=== PATIENT | female | born 1970 | race Caucasian/White ===

== ENCOUNTER 2016-08-29 14:05 | Emergency (ER) | payer SELFPAY ==
[2016-08-29] MEDS: NORMAL SALINE 10 ML SYRINGE FLUSH IVP PRN ×2 (14:20→14:46)
[2016-08-29] MEDS ORDERED: Mupirocin Ointment 2% 22 gm Tube TOPICAL ONE (14:26)
[2016-08-29] MEDS ORDERED: DEXAMETHASONE PF 10 MG/1 ML VIAL IVP ONE (14:26)
[2016-08-29 14:32] LABS: BASOPHILS # (AUTO) 0 10*3/UL; BASOPHILS % (AUTO) 0 % (0-1); EOSINOPHILS % (AUTO) 0.3 % (0-8); HEMATOCRIT 46.1 % (37.0-47.0); HEMOGLOBIN 15.6 g/dL (12.0-16.0); IMM GRAN % (AUTO) 0 % (0-5); IMM GRAN# (AUTO) 0 10*3/UL; LYMPHOCYTES # (AUTO) 0.73 10*3/uL; LYMPHOCYTES % (AUTO) 23.3 % (10-50); MEAN CORPUSCULAR HEMOGLOBIN 30.6 PG (27-31); MEAN CORPUSCULAR HGB CONC 33.8 g/dL (33-37); MONOCYTES # (AUTO) 0.21 10*3/UL (0.3-0.8); MONOCYTES % (AUTO) 6.7 % (5-15); NEUTROPHILS # (AUTO) 2.18 10*3/UL; NEUTROPHILS % (AUTO) 69.7 % (50-80); RDW COEFFICIENT OF VARIATION 14.7 % (11.5-14.5); WHITE BLOOD COUNT 3.13 10^3/uL (4.8-10.8)
--- NOTE | 2016-08-29 14:33 | PDOC ---
Skin Rash/Insect/Abscess HPI - General Chief Complaint: Integumentary Stated Complaint: RASH ALL OVER HER BODY Date Seen by Provider: 08/29/16 Time Seen by Provider: 14:27 Source: POSITIVE: Patient Exam Limitations: POSITIVE: No limitations Nurse's Notes Reviewed & Considered: Yes - History of Present Illness Initial Comments: Patient comes in today with chief complaint of rash. 3 days ago patient began to develop a papular rash at the base of her throat then spread pretty much over all of her body. It has been itching. She took Claritin and this seems to have helped the itch somewhat. She saw here yesterday, they started her on unknown dose of prednisone for 5 days. Today her rash is slightly better. She denies any fever or chills she has had sweats. Denies any nausea vomiting or diarrhea, no hematuria dysuria. Have you received a tetanus shot in the past 10 years?: No Body Location Affected: REPORTS: Other (Generalized body.) Timing: REPORTS: Gradual Duration: >24 hours Severity: Severe Quality: REPORTS: Itching Identified Causes: REPORTS: No When Exposed: REPORTS: Unknown Exposure Time Where Exposed: REPORTS: Unknown Similar Symptoms Previously: No Recent Care Received: REPORTS: Recently Seen, Treated by MD (Treated with prednisone for 5 days.) Any Prior Injuries Related to Current Complaint?: No - Patient Home Medications Home Medications: Home Medications Vitamin A 1 cap PO DAILY 08/09/13 Prednisone 50 mg PO DAILY #5 tab 08/28/16 Ibuprofen 400 mg PO Q6H PRN 08/29/16 Loratadine [Claritin] 10 mg PO DAILY 08/29/16 Ranitidine HCl [Zantac 75] 75 mg PO DAILY 08/29/16 - Patient Allergies Allergies/Adverse Reactions: Allergies Allergy/AdvReac Type Severity Reaction Status Date / Time No Known Drug Allergies Allergy NOT Verified 08/29/16 14:21 APPLICABLE Past Medical History - heen HEENT History: Denies History Cardiovascular History: Denies History Respiratory History: Other (please comment) Additional Respiratory History: SMOKERS COUGH ESPECIALLY IN MORNINGS Gastrointestinal History: GERD Additional Gastrointestinal History: DIFFICULTY SWALLOWING, FOOD STICKING Genitourinary History: Denies History Endocrine History: Denies History Musculoskeletal History: Back Pain Prosthesis or Implant: No Neurological History: Denies History Blood Disorders: Denies History Psychiatric History: Substance Abuse History of Sexually Transmitted Diseases: No Cancer History: Denies History History of MDRO: No History of Other Communicable Diseases: No Alcohol Use: None Substance Use Type: Marijuana Previous Surgical History: Yes Type / Date of Surgery: RIGHT WRIST ORIF WITH HARDWARE REMOVAL/ TUBAL Anesthesia Reactions: No Malignant Hyperthermia: No Significant Family History: Heart disease, Cancer ROS - Limitations ROS Limitations: No Limitations Constitution: REPORTS: Diaphoresis Cardiovascular: REPORTS: Denies Cardiac Symptoms Respiratory: REPORTS: Denies Resp Symptoms Neurological: REPORTS: Denies Neuro Symptoms Gastrointestinal: REPORTS: Denies GI Symptoms Endocrine: REPORTS: Denies Symptoms Musculoskeletal: REPORTS: Denies MS Symptoms Genitourinary: REPORTS: Denies Symptoms Eyes: REPORTS: Denies Symptoms ENT: REPORTS: Denies Symptoms Skin: REPORTS: Rash (Generalized erythemic rash. Looks like sandpaper.) Lympathic: REPORTS: Denies Lympathic Symptoms Immunologic: POSITIVE: Denies Symptoms Psychiatric: POSITIVE: Denies Psych Symptoms Skin Rash/Insect/Abscess Exam - General Appearance General Appearance: REPORTS: Alert, Cooperative, No Evidence of Trauma, Anxious - Skin Skin: REPORTS: Warm, Dry, Skin Rash (Small pustules are noted at the base of each hair follicle with erythema present) Skin Location: REPORTS: Generalized Skin Character: REPORTS: Symmetric, Fine, Vesicular, Erythematous Skin Symptoms: REPORTS: Warmth, Sand Paper - Like - Extremities Extremity: Non-Tender: (All Extremities), Normal ROM: (All Extremities), Normal Inspection: (All Extremities) - HEENT HEENT: POSITIVE: Head Inspection Nml, Eyes Inspection Nml, Ears Inspection Nml, Nose Inspection Nml, PERRL, EOMI, Pharyngeal Erythema, Dry Mucous Membranes - Neck Neck: REPORTS: Trachea Midline, No Swelling - Respiratory Respiratory: REPORTS: No Respiratory Distress, Breath Sounds Normal - Cardiovascular Cardiovascular: REPORTS: Regular Rate and Rhythm, Heart Sounds Normal - Abdomen Abdomen: Soft: (All Quadrants), Normal Bowel Sounds: (All Quadrants), Denies Tenderness: (All Quadrants) - Neurological / Psychological Neurological: REPORTS: Affect Apporpriate, Oriented X3 Procedures - Laceration/Wound Repair Did patient have a laceration repair: No Skin Rash/Abscess Progress - Results Reviewed by me Labs Normal Except for:: Abnormal Lab Results: Entire Visit 08/29/16 Range/Units 14:30 WBC 3.13 L (4.8-10.8) 10^3/uL RDW Coeff of Rocio 14.7 H (11.5-14.5) % [place] # (Auto) 0.21 L (0.3-0.8) 10*3/UL Carbon Dioxide 22 L (23-33) meq/L Glucose 112 H (78-110) mg/dL Calculated Osmolality 293.0 H (267-292) mOsm/kg Lab Results Reviewed: Yes - Patient's Progress Pain Medication Addressed: POSITIVE: Not Applicable Re-Examine Time:: 15:17 Status: POSITIVE: Improved MDM / ED Course: Patient was examined, an IV started, blood drawn and sent to the lab for studies. She received 2 g of IV dexamethasone, topical mupirocin. Erythema and rash did improve. She is being discharged home with an assessment of folliculitis. She has instructions to apply mupirocin twice a day and if no improvement in 2-3 days to follow up with her primary care physician. - Consult Counseled: POSITIVE: Patient, RE: Lab Results, RE: DX, RE: Need for F/U Patient Care Time - Estimated PCT Patient Care Time (In Minutes): 20 Vital Signs - Recent Vital Signs Vital Signs: Vital Signs (Last 8 hours) Temp Pulse Resp BP Pulse Ox 08/29/16 14:06 98 F 80 16 147/103 95 - VS Reviewed Vital Signs Reviewed: Yes Discharge Clinical Impression: Folliculitis Discharge Disposition: Discharged to Home Condition: Good Patient Instructions Given at Discharge: Folliculitis (ED)
[2016-08-29 14:35] LABS: PLATELET MORPHOLOGY COMMENT NORMAL MORPHOLOGY (NORM)
[2016-08-29 14:38] VITALS: RESP 16; TEMP 98
[2016-08-29 14:41] LABS: ASPARTATE AMINO TRANSFERASE 24 IU/L (8-39); BILIRUBIN,TOTAL 0.4 mg/dL (0.3-1.2); BLOOD UREA NITROGEN 11 mg/dL (7-22); BUN/CREATININE RATIO 15.71 (6-20); CHLORIDE 107 meq/L (98-112); CREATININE 0.7 mg/dL (0.50-1.20); EST GLOMERULAR FILTRATION > 60 (>60 ml/min/1.73m(2)); GLUCOSE 112 mg/dL (78-110); POTASSIUM 4.2 meq/L (3.8-5.2); SODIUM 142 meq/L (135-145)
== END 2016-08-29 15:36 | disposition home or self-care (01) ==
LOC: ER 14:05
DX: L73.9 Follicular disorder, unspecified (principal)
CPT/HCPCS: 80053; 85025; 87802; 96374; 99282; 99283; J1100

== ENCOUNTER 2016-08-30 18:31 | Emergency (ER) | payer SELFPAY ==
[2016-08-30] MEDS ORDERED: methylPREDNISolone 125 MG/2 ML VIAL IVP ONE (18:56)
[2016-08-30] MEDS ORDERED: NORMAL SALINE 10 ML SYRINGE FLUSH IVP PRN (18:56)
[2016-08-30] MEDS ORDERED: IPRATROPIUM/ALBUTEROL SULFATE 3 ML NEB NEB ONE (18:56)
[2016-08-30] MEDS ORDERED: diphenhydrAMINE 50 MG/1 ML VIAL IVP ONE (18:56)
[2016-08-30] MEDS ORDERED: FAMOTIDINE 20 MG TABLET PO ONE (18:56)
[2016-08-30] MEDS ORDERED: Sodium Chloride 0.9% 1,000 ML PRIMARY IV ONE (18:56)
[2016-08-30 19:30] LABS: BASOPHILS # (AUTO) 0.01 10*3/UL; BASOPHILS % (AUTO) 0.2 % (0-1); EOSINOPHILS % (AUTO) 0 % (0-8); HEMATOCRIT 42.4 % (37.0-47.0); HEMOGLOBIN 14.5 g/dL (12.0-16.0); IMM GRAN % (AUTO) 0.2 % (0-5); IMM GRAN# (AUTO) 0.01 10*3/UL; LYMPHOCYTES # (AUTO) 0.71 10*3/uL; LYMPHOCYTES % (AUTO) 14.3 % (10-50); MEAN CORPUSCULAR HEMOGLOBIN 30.3 PG (27-31); MEAN CORPUSCULAR HGB CONC 34.2 g/dL (33-37); MEAN PLATELET VOLUME 10.2 FL (7.4-12.2); MONOCYTES # (AUTO) 0.47 10*3/UL (0.3-0.8); MONOCYTES % (AUTO) 9.4 % (5-15); NEUTROPHILS # (AUTO) 3.78 10*3/UL; NEUTROPHILS % (AUTO) 75.9 % (50-80); RDW COEFFICIENT OF VARIATION 14.5 % (11.5-14.5); RED BLOOD COUNT 4.78 10^6/uL (4.20-5.40); WHITE BLOOD COUNT 4.98 10^3/uL (4.8-10.8)
[2016-08-30 19:43] LABS: ASPARTATE AMINO TRANSFERASE 21 IU/L (8-39); BILIRUBIN,TOTAL 0.3 mg/dL (0.3-1.2); BLOOD UREA NITROGEN 11 mg/dL (7-22); BUN/CREATININE RATIO 18.33 (6-20); C-REACTIVE PROTEIN 0.7 mg/dL (0.0-0.9); CALCIUM 8.9 mg/dL (8.7-10.7); CHLORIDE 109 meq/L (98-112); CREATININE 0.6 mg/dL (0.50-1.20); EST GLOMERULAR FILTRATION > 60 (>60 ml/min/1.73m(2)); GLUCOSE 115 mg/dL (78-110); POTASSIUM 3.9 meq/L (3.8-5.2); SODIUM 139 meq/L (135-145); TOTAL PROTEIN 7.2 g/dL (6.1-8.0)
[2016-08-30 19:48] LABS: PLATELET MORPHOLOGY COMMENT NORMAL MORPHOLOGY (NORM)
[2016-08-30 20:05] VITALS: TEMP 97.1
[2016-08-30 20:10] LABS: ERYTHROCYTE SEDIMENTATION RATE 6 MM/HR (0-20)
[2016-08-30 23:31] VITALS: RESP 16
--- NOTE | 2016-08-31 00:39 | PDOC ---
Skin Rash/Insect/Abscess HPI - General Chief Complaint: Integumentary Stated Complaint: RASH Date Seen by Provider: 08/30/16 Time Seen by Provider: 18:40 Source: POSITIVE: Patient, Old records Exam Limitations: POSITIVE: No limitations Nurse's Notes Reviewed & Considered: Yes - History of Present Illness Initial Comments: The patient is a 46-year-old female. She states that she has had a rash for the past 5 days. She states the rash began on the neck, posterior or lateral aspects and has since spread primarily to the upper posterior thorax and inguinal areas, and less so to the lower back upper legs and abdomen. She was seen at the walk-in clinic 2 days ago and was seen in the emergency room here yesterday. She was started on prednisone and states she was diagnosed with folliculitis. She states she rashes gotten worse. The rashes mildly pruritic. She complains of some shortness of breath but has not had any wheezing. Some decreased appetite. Mild sore throat. Patient states that she has had similar lesions chronically under her breasts and in the inguinal area. Present medications include prednisone, Claritin, Zantac, and ibuprofen and Mucopiricin cream. No fevers or chills or systemic symptoms. Have you received a tetanus shot in the past 10 years?: Unknown Body Location Affected: REPORTS: Upper Extremity (L), Upper Extremity (R), Lower Extremity (L), Lower Extremity (R), Neck, Chest, Abdomen, Back (Most prominently upper back), Other (Chronic"rash"under both breasts and inguinal area.) Timing: REPORTS: Gradual, Getting Worse Duration: <1 week (5 days) Severity: Moderate Quality: REPORTS: Itching, Other (Mildly uncomfortable; mildly pruritic) Identified Causes: REPORTS: No When Exposed: DENIES: Just Prior to Sx Onset, Unknown Exposure Time Suspected Etiology: DENIES: Antibiotic, Aspirin, NSAID, MARY BETH Inhibitor, Shellfish , Nuts, Soybeans, Eggs, Dairy, Bee/Wasp Sting, Ant Bite, Poison Ayesha, Poison Trevor , Infectious Illness, Spider Bite, Insect Bite, Soap, Detergent, Other Similar Symptoms Previously: Yes (chronic rash under both breasts and inguinal area) Recent Care Received: REPORTS: Recently Seen, Treated by MD (As above) Any Prior Injuries Related to Current Complaint?: No - Patient Home Medications Home Medications: Home Medications Vitamin A 1 cap PO DAILY 08/09/13 Prednisone 50 mg PO DAILY #5 tab 08/28/16 Ibuprofen 400 mg PO Q6H PRN 08/29/16 Loratadine [Claritin] 10 mg PO DAILY 08/29/16 Ranitidine HCl [Zantac 75] 75 mg PO DAILY 08/29/16 Ketoconazole [Nizoral] 60 gm TP Q12H #1 cream.gm. 08/30/16 Ketoconazole [Nizoral] 200 mg PO DAILY #10 tablet 08/30/16 - Patient Allergies Allergies/Adverse Reactions: Allergies Allergy/AdvReac Type Severity Reaction Status Date / Time No Known Drug Allergies Allergy NOT Verified 08/30/16 18:34 APPLICABLE Past Medical History - heen HEENT History: Denies History Cardiovascular History: Denies History Respiratory History: Other (please comment) Additional Respiratory History: SMOKERS COUGH ESPECIALLY IN MORNINGS Gastrointestinal History: GERD Additional Gastrointestinal History: DIFFICULTY SWALLOWING, FOOD STICKING Genitourinary History: Denies History Endocrine History: Other (please comment) Additional Endocrine History: "I have some rare skin disorder...I had a biopsy of skin a long time ago but I dont remember what it was called". 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 Psychiatric History: Substance Abuse History of Sexually Transmitted Diseases: No Cancer History: Denies History In Past Year Been Physically Harmed or Verbally Threatened: No History of MDRO: No History of Other Communicable Diseases: No Tobacco Use: Current Every Day Smoker Alcohol Use: None Substance Use Type: Marijuana, Other (please comment) Previous Surgical History: Yes Type / Date of Surgery: RIGHT WRIST ORIF WITH HARDWARE REMOVAL/ TUBAL Anesthesia Reactions: No Malignant Hyperthermia: No Significant Family History: Heart disease, Cancer Past Medical History Reviewed: Reviewed - No Changes ROS - Limitations ROS Limitations: No Limitations Constitution: REPORTS: Denies Symptoms Cardiovascular: REPORTS: Denies Cardiac Symptoms Respiratory: REPORTS: Denies Resp Symptoms Neurological: REPORTS: Denies Neuro Symptoms Gastrointestinal: REPORTS: Denies GI Symptoms Endocrine: REPORTS: Denies Symptoms Musculoskeletal: REPORTS: Denies MS Symptoms Genitourinary: REPORTS: Denies Symptoms Eyes: REPORTS: Denies Symptoms ENT: REPORTS: Denies Symptoms Skin: REPORTS: Rash (Papular rash which looks somewhat eczematoid as above; chronic rash under her breasts and inguinal area which looks like yeast or fungal rash.) Lympathic: REPORTS: Denies Lympathic Symptoms Immunologic: POSITIVE: Denies Symptoms Psychiatric: POSITIVE: Denies Psych Symptoms Skin Rash/Insect/Abscess Exam - General Appearance General Appearance: REPORTS: Alert, Cooperative, No Acute Distress, No Evidence of Trauma - Skin Skin: REPORTS: Skin Rash (Papular rash mainly located on upper back under her breasts and inguinal area; less so abdomen lower back and proximal extremities) Skin Location: REPORTS: Generalized (As above) Skin Character: REPORTS: Symmetric, Papular Skin Symptoms: REPORTS: Rough Texture. DENIES: Warmth, Tenderness, Swelling, Lymphangitis, Induration, Thickening, Scaling, Well Defined Border, Weeping, Inflammation, Crusting, Sand Paper - Like, Skin-Line Distribution, Other - Extremities Extremity: Non-Tender: (All Extremities), Normal ROM: (All Extremities), Normal Inspection: (All Extremities) - HEENT HEENT: POSITIVE: Head Inspection Nml, Eyes Inspection Nml, Ears Inspection Nml, Nose Inspection Nml, Oral/Dental Inspect. Nml, Pharynx Inspect. Nml, PERRL, EOMI - Neck Neck: REPORTS: Trachea Midline, No Swelling - Respiratory Respiratory: REPORTS: No Respiratory Distress, Breath Sounds Normal - Cardiovascular Cardiovascular: REPORTS: Regular Rate and Rhythm, Heart Sounds Normal, Equal Pulses, Strong Pulses Peripheral Pulses: Radial (R): 2+, Radial (L): 2+ - Abdomen Abdomen: Soft: (All Quadrants), Normal Bowel Sounds: (All Quadrants), Denies Tenderness: (All Quadrants), No Splenomegaly: (All Quadrants), No Hepatomegaly: (All Quadrants), No Guarding: (All Quadrants), No Rebound: (All Quadrants), No Palpable Pulse: (All Quadrants), No Palpabale Mass: (All Quadrants), No Distention: (All Quadrants), No Rigidity: (All Quadrants) - Neurological / Psychological Neurological: REPORTS: Oriented X3, location man Normal As Tested, Motor Normal, Sensation Normal, 5, 6 Images - Complete Complete: 1 - Rash most prominent here 2 - Chronic rash under breast 3 - Chronic rash inguinal area Skin Rash/Abscess Progress - Results Reviewed by me Labs Normal Except for:: Abnormal Lab Results: Entire Visit 08/30/16 Range/Units 19:26 Carbon Dioxide 19 L (23-33) meq/L Glucose 115 H (78-110) mg/dL Lab Results Reviewed: Yes (all normal, including ESR in C-reactive protein) - Patient's Progress Pain Medication Addressed: POSITIVE: Not Applicable School/Work Release Addressed: POSITIVE: Not Applicable Re-Examine Time:: 20:10 Status: POSITIVE: Unchanged Nebulizer Treatment Given:: Yes (DuoNeb) - Consult Counseled: POSITIVE: Patient, RE: Lab Results, RE: DX, RE: Need for F/U Patient Care Time - Estimated PCT Patient Care Time (In Minutes): 40 Vital Signs - Recent Vital Signs Vital Signs: Vital Signs (Last 8 hours) Temp Pulse Pulse Resp BP BP Pulse Ox 08/30/16 20:29 68 16 132/80 95 08/30/16 18:31 97.1 F 62 18 139/87 96 - VS Reviewed Vital Signs Reviewed: Yes Discharge Clinical Impression: Id reaction, Moniliasis, cutaneous Discharge Disposition: Discharged to Home Condition: Stable Prescriptions / Orders: Ketoconazole [Nizoral] 60 gm TP Q12H #1 cream.gm. Ketoconazole [Nizoral] 200 mg PO DAILY #10 tablet Patient Instructions Given at Discharge: Acute Rash (ED) Additional Instructions: I believe that you have what is known as an id reaction, which is a skin reaction in response to chronic yeast or fungal infections. I believe the chronic rash a you have under your breasts and in the groin area he is most likely a yeast infection, and I believe this is probably precipitated your more diffuse rash. Please take Nizoral, 200 mg, daily for 10 days. Also, use Nizoral cream under your breasts and in the groin area where you have your chronic rash. Follow-up with your primary care provider if you're not improving in 10 days. Return here anytime if condition worsens in any way. If you're not improving in 10 days, I did recommend that you see a educational director. Follow Up With: NONE,NONE [Primary Care Provider] - (Instructions as above. Medications as above. Follow-up with your primary care provider or educational director. Return here anytime as necessary.)
== END 2016-08-30 20:29 | disposition home or self-care (01) ==
LOC: ER 18:31
DX: L30.2 Cutaneous autosensitization (principal); B37.89 Other sites of candidiasis
CPT/HCPCS: 80053; 85025; 85652; 86140; 86308; 94640; 96361; 96374; 96375; 99282; 99283; J1200; J2930; J7620; J7030

== ENCOUNTER → 2016-11-22 | Outpatient (CLI) | payer SELFPAY ==
[2016-11-22 09:43] LABS: BASOPHILS # (AUTO) 0.05 10*3/UL; BASOPHILS % (AUTO) 0.3 % (0-1); EOSINOPHILS # (AUTO) 0.14 10*3/UL; EOSINOPHILS % (AUTO) 0.9 % (0-8); HEMATOCRIT 43.5 % (37.0-47.0); HEMOGLOBIN 14.4 g/dL (12.0-16.0); LYMPHOCYTES # (AUTO) 2.49 10*3/uL; MEAN CORPUSCULAR HEMOGLOBIN 29.9 PG (27-31); MEAN CORPUSCULAR HGB CONC 33.1 g/dL (33-37); MEAN CORPUSCULAR VOLUME 90.4 FL (81-99); MEAN PLATELET VOLUME 9.6 FL (7.4-12.2); MONOCYTES # (AUTO) 0.65 10*3/UL (0.3-0.8); MONOCYTES % (AUTO) 4.4 % (5-15); NEUTROPHILS # (AUTO) 11.47 10*3/UL; NEUTROPHILS % (AUTO) 77.3 % (50-80); RED BLOOD COUNT 4.81 10^6/uL (4.20-5.40)
--- NOTE | 2016-11-22 09:51 | EKG ---
[address] [address] Measurements Intervals [place] Rate: 54 P: 62 OK: 123 QRS: 46 QRSD: 99 T: 37 QT: 421 QTc: 408 Interpretive Statements SINUS BRADYCARDIA WITH OCCASIONAL SUPRAVENTRICULAR PREMATURE COMPLEXES No previous ECG available for comparison Electronically Signed On 11-22-16 10:28:20 MDT by Polo Us [email or web address]
[2016-11-22 09:52] LABS: BLOOD UREA NITROGEN 6 mg/dL (7-22); CALCIUM 8.5 mg/dL (8.7-10.7); EST GLOMERULAR FILTRATION > 60 (>60 ml/min/1.73m(2)); SERUM ALBUMIN 3.7 g/dL (3.5-4.8)
[2016-11-22 09:54] LABS: PLATELET MORPHOLOGY COMMENT NORMAL MORPHOLOGY (NORM); RBC MORPHOLOGY COMMENT NORMAL MORPHOLOGY (NORM); WBC MORPHOLOGY COMMENT NORMAL MORPHOLOGY (NORM)
[2016-11-22 10:05] LABS: TROPONIN I < 0.012 ng/mL (< 0.040)
--- NOTE | 2016-11-22 12:43 | DI ---
PA /LATERAL CHEST X-RAY, 11/22/2016 9:00 AM : Clinical History: Cough Previous Exam: None available due to system constraints. There is no acute soft tissue or bony abnormality. Heart size is normal. Lungs are clear. Mediastinal structures are normal. There are no pulmonary nodules. IMPRESSION: Normal chest x-ray.
== END ==
LOC: MOB LAB 09:04
PROVIDERS: ATTEND Physician Assistant
DX: R05 Cough (principal); R07.9 Chest pain, unspecified; R06.02 Shortness of breath; R00.1 Bradycardia, unspecified; F17.200 Nicotine dependence, unspecified, uncomplicated
CPT/HCPCS: 36415; 71020; 80053; 82553; 84484; 85025; 85379; 93005; 93010